=== PATIENT | male | born 1955 | race Two or more races ===

== ENCOUNTER 2022-10-30 13:14 | Outpatient (CLI) | payer MEDICAID, SELFPAY ==
--- NOTE | ~2022-10-30 | US_ITS ---
Ultrasound of the neck CLINICAL HISTORY: Cervical lymphadenopathy, right deltoid pain TECHNIQUE: Sonographic imaging of the neck and right deltoid region was performed. FINDINGS: No abnormal mass lesion identified. No lymphadenopathy seen. No fluid collection seen. IMPRESSION: No sonographic abnormality seen in the region scanned. Reviewed, dictated and finalized at [facility].
== END 2022-10-30 13:15 | disposition home or self-care (01) ==
LOC: ANHIMG 13:16
PROVIDERS: Visit Provider Internal Medicine Infectious Disease
DX: R59.0 Localized enlarged lymph nodes (principal)
CPT/HCPCS: 76536

== ENCOUNTER 2022-12-25 10:40 | Outpatient (CLI) | payer MEDICAID, SELFPAY ==
--- NOTE | ~2022-12-25 | XR_ITS ---
EXAMINATION: XR chest 2V 12/25/2022 11:13 INDICATION: Chest pain with exertion PROCEDURE: 2 view chest COMPARISON: No prior studies for comparison. FINDINGS: The lungs are clear. The cardiomediastinal silhouette is within normal limits. There are no pleural effusions. There is no pneumothorax suspected. There is mild scoliosis. IMPRESSION: 1: NO ACUTE CARDIOPULMONARY DISEASE. Reviewed, dictated and finalized at location []
--- NOTE | ~2022-12-25 | XR_ITS ---
EXAM: XR cervical spine 4-5V DATE: 12/25/2022 11:11 HISTORY: PAIN IN RIGHT SHOULDER JOINT AND RIGHT SIDE OF NECK . COMPARISON: None available. FINDINGS: Craniocervical association and atlantoaxial joint are aligned. No prevertebral soft tissue swelling. Vertebral bodies are aligned. Mild height loss at C5-C6. Mild disc space narrowing and mar ginal osteophytosis in the mid and lower cervical spine. Mild multilevel facet hypertrophy. 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 Mild multilevel facet a rthropathy. Reviewed, dictated and finalized at location [facility]. 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 M ild multilevel facet arthropathy.
--- NOTE | ~2022-12-25 | XR_ITS ---
EXAM: XR shoulder RT min 2V DATE: 12/25/2022 11:11 HISTORY: PAIN IN RIGHT SHOULDER JOINT AND RIGHT SIDE OF NECK . COMPARISON: None available. FINDINGS: Normal mineralization. No fracture or dislocation. No lytic or blastic lesion. Mild AC basilia nt widening. Mild AC joint hypertrophy. Subacromial narrowing. Subcortical cyst formation in the late ral humeral head. No erosion or periosteal change. Soft tissues within normal limits. IMPRESSION: AC joint widening may represent low-grade AC joint injury of uncertain age. Mild AC joint hypertrophy. Subacromial narrowing as can be seen with rotator cuff pathology. Reviewed, dictated and finalized at location [facility]. IMPRESSION: AC joint widening may represent low-grade AC joint injury of uncert ain age. Mild AC joint hypertrophy. Subacromial narrowing as can be seen with r otator cuff pathology.
== END 2022-12-25 10:41 | disposition home or self-care (01) ==
LOC: ANHIMG 10:45
PROVIDERS: Visit Provider Internal Medicine Infectious Disease
DX: M54.12 Radiculopathy, cervical region (principal); R07.9 Chest pain, unspecified; M50.30 Other cervical disc degeneration, unspecified cervical region; M19.011 Primary osteoarthritis, right shoulder
CPT/HCPCS: 71046; 72050; 73030

== ENCOUNTER 2024-01-15 08:23 | Outpatient (CLI) | payer BC, SELFPAY ==
--- NOTE | ~2024-01-15 | XR_ITS ---
EXAM: XR shoulder LT min 2V DATE: 01/15/2024 08:54 HISTORY: SHOULDER PAIN . COMPARISON: X-ray right shoulder 12/25/2022. FINDINGS: Normal mineralization. No fracture or dislocation. No lytic or blastic lesion. Moderate de generative change at the AC joint. Mild degenerative change at the glenohumeral joint. No erosion or periosteal change. Soft tissues within normal limits. IMPRESSION: Polyarticular left shoulder osteoarthritis. Reviewed, dictated and finalized at location K.
== END 2024-01-15 08:24 | disposition home or self-care (01) ==
PROVIDERS: PCP Internal Medicine Infectious Disease; Visit Provider Internal Medicine Infectious Disease
DX: M19.012 Primary osteoarthritis, left shoulder (principal)
CPT/HCPCS: 73030

== ENCOUNTER 2025-01-19 11:15 | Outpatient (CLI) | payer OTHER, SELFPAY ==
[2025-01-19 11:59] LABS: Hematocrit 39.3 % (42.0-52.0); Hemoglobin 12.1 g/dL (14.0-18.0); Mean Corpuscular HGB Conc 30.8 g/dl (32-36); Mean Corpuscular Hemoglobin 26.1 pg (26-34); Mean Corpuscular Volume 84.7 fl (80-100); Platelet Count Result 152 k/mm3 (150-375); Red Blood Count 4.64 M/mm3 (4.6-6.20); White Blood Count 2.6 K/mm3 (4.5-10.0)
[2025-01-19 12:28] LABS: Anion Gap 7 mmol/L (4-12); Blood Urea Nitrogen 15 mg/dL (9-20); Calcium 8.5 mg/dL (8.4-10.2); Carbon Dioxide 27 mmol/L (22-30); Chloride 102 mmol/L (98-107); Estimated Glomerular Filt Rate > 60; Glucose 125 mg/dL (65-110); Potassium 3.8 mmol/L (3.4-5.0); Sodium 136 mmol/L (137-145)
[2025-01-19 12:33] LABS: Iron 80 ug/dL (49-181)
[2025-01-19 12:43] LABS: Percent Iron Saturation 22 % (20-50)
[2025-01-19 13:15] LABS: Ferritin 16.10 ng/mL (11.1-264)
[2025-01-19 13:40] LABS: Vitamin B12 636.0 pg/mL (239-931)
== END 2025-01-19 11:16 | disposition home or self-care (01) ==
LOC: ANHLAB 11:17
PROVIDERS: PCP Internal Medicine Infectious Disease; Visit Provider Nurse Practitioner Family
DX: D50.0 Iron deficiency anemia secondary to blood loss (chronic) (principal); R63.4 Abnormal weight loss
CPT/HCPCS: 36415; 80048; 82607; 82728; 82746; 83540; 83550; 85027